=== PATIENT | female | born 1970 | race Caucasian/White ===

== ENCOUNTER 2025-07-11 13:46 | Emergency (ER) | payer OTHER, BC, SELFPAY ==
[2025-07-11 13:54] VITALS: BP 163/95
--- NOTE | 2025-07-11 15:24 | ED.SKININJ ---
HPI-Injury
General
Chief Complaint: Eye Problems
Source: patient
Exam Limitations: none
Time Seen by Provider: 07/11/25 14:52
Nursing documentation reviewed up to this point in time: agreed with
History of Present Illness-Injury
Initial Injury comments:
55 yo female with hx GERD, anxiety/depression presents for injury to left eye. 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 Went to where they go for worker's comp,
sent here for concern about orbital fracture and 'chunk out of my eye.' Vision in left eye is 'a little blurry.' Denies significant pain in the eyeball.
Past History
Past History
ED Past Medical History: Fibromyalgia, GERD and Psychiatric (anxiety/depression )
ED Past Surgical History: Appendectomy and Orthopedic
Social History
Tobacco: Non-smoker
Alcohol: None
Personal:
Living: with family
Employment: Employed
Review of Systems
Review of Systems
Allergies reviewed?: Yes
All Other Systems: ROS reviewed and negative except as documented in HPI and ROS
EENT: Reports other (Left eye injury)
ABD/GI: Denies nausea or vomiting
Skin: Reports no symptoms
Neurological: Denies dizzy, headache, weakness or numbness
Phy Exam
Physical Exam
Physical Exam:
GENERAL: No acute distress. A&Ox3.
CONSTITUTIONAL: Afebrile.
EYES: R eye clear, conjunctivae normal. L eye with moderate medial subconjunctival hemorrhage, EOMs intact mild orbital bony tenderness, no periorbital or eyelid swelling or discoloration. Pressure equal both eyes to palpation with mild tenderness L
eye
ENMT: moist mucus membranes, Pharynx nl
RESPIRATORY: Regular respirations, nonlabored, lungs clear.
CARDIOVASCULAR: Regular rate and rhythm, no murmurs, no rubs.
MUSCULOSKELETAL: Moves with ease. Well perfused.
SKIN: Warm, dry, pink
PSYCH: Normal mood and affect. Well kept, interactive and appropriate
NEUROLOGIC: Awake, alert and oriented. No focal neurological deficits
Eye Exam
Eye Exam: PERRL, EOMI, globe normal (Pressure left eye 8 mm Hg, Pressure R eye 7 mm Hg) and other (Pt wears contact in right eye only)
Right 20/: 30
Left 20/: 50
Both 20/: 30
Type of Exam: slit lamp and fluorescein (deep clean abrasion between 8 and 9 o'clock medial cornea and half way across iris area)
Course
Orders/Labs/Results
Orders:
Orders
07/11/25 14:52
Visual Acuity- Treatment ONCE
07/11/25 15:05
Fluorescein Sodium [Ful-Katerina] 1 mg .ROUTE .STK-MED ONE
Tetracaine HCl [Tetracaine 0.5% Ophthalmic Solution] 1 drop .ROUTE .STK-MED ONE
07/11/25 15:23
CT Orbits W/o Iv Contrast Urgent
Comment:
Reason For Exam: contusion left orbit, corneal abrasion
07/11/25 18:05
Ibuprofen [Motrin] 600 mg PO NOW STA
Vital Signs
Initial and Last Documented VS:
Initial Vital Signs
Temp Pulse Resp BP Pulse Ox
98.1 F 79 16 163/95 99
07/11/25 13:54 07/11/25 13:54 07/11/25 13:54 07/11/25 13:54 07/11/25 13:54
Last Documented Vital Signs
Temp Pulse Resp BP Pulse Ox
98.1 F 77 16 127/72 98
07/11/25 13:54 07/11/25 18:02 07/11/25 18:02 07/11/25 18:02 07/11/25 18:02
MDM/Problems Addressed
Differential Diagnosis Includes:
Corneal abrasion, punctured globe, orbital fracture
MDM/Problems Addressed:
55 yo female with hx GERD, anxiety/depression presents for injury to left eye. 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 Went to where they go for worker's comp,
sent here for concern about orbital fracture and 'chunk out of my eye.' Vision in left eye is 'a little blurry.' Denies significant pain in the eyeball.
NAD, pleasant
Orbital CT scan radiology report read: No fracture
Final diagnosis: Corneal abrasion, subconjunctival hemorrhage
6:00 p.m.
Plan: antibiotic eye drops, Tylenol as needed for pain, follow up with worker's comp ophthalmology at [facility]
Rx for Gentamicin eye drops sent to her pharmacy
Pt is comfortable, pleasant, ready for discharge
*Pulse Oximetry
SaO2: 99
Oxygen Mode of Delivery: Room air
Patient hypoxic: not evaluated
*Critical Care Note
Total Time (30-74mins, 75-104mins- exclusive of procedures): Not Applicable
ED Attending Note
-
Portions of this chart may have been created with voice recognition software.� Occasional wrong word or��sound alike� substitutions may have occurred due to the inherent limitations of voice recognition software.
Discharge Plan
Departure
Patient Disposition: Home (Routine Discharge)
Date of Disposition: 07/11/25
Time of Disposition: 18:09
Patient with high blood pressure during this ER visit?: No
Condition: Good
Discharge Problem:
Abrasion of left cornea, Traumatic subconjunctival hemorrhage of left eye
Instructions: Corneal Abrasion (DC), How to Use Eye Drops, Subconjunctival Hemorrhage
Prescriptions:
New
gentamicin 0.3 % drops
2 drp ophthalmic (eye) Q4H Qty: 5 0RF
No Action
cyclobenzaprine 10 MG tablet
10 mg PO DAILY PRN (Reason: fibromyalagia flare)
lorazepam 1 MG tablet
0.5 - 1 mg PO Q4HPRN PRN (Reason: anxiety)
sertraline 50 MG tablet
50 mg PO DAILY
lamotrigine 100 MG tablet
100 mg PO DAILY
loratadine 10 MG tablet
10 mg PO PRN PRN (Reason: allergies)
ondansetron 4 MG tablet,disintegrating
4 mg PO TIDPRN PRN (Reason: nausea) Qty: 9 0RF
Referrals:
[facility] [Other] - Follow up in 2-3 days
Ozzie Mathew MD [Family Provider, Family Practice]
Activity Restrictions/Additional Instructions:
As we discussed, I sent a prescription for gentamicin antibiotic drops to your pharmacy.
May take Tylenol ibuprofen as needed for pain.
Cool compress to the eye 20 minutes off-and-on today and tomorrow is much as you can may help soothe the area and minimize swelling
Call your Worker's Comp. eye doctor first thing Monday morning and make appointment for same-day for follow-up
Return here over the weekend for increasing pain in the eye, loss of vision, fever, feeling worse in any way.
Interventions
Interventions:
*Risk Screen - Suicide Last Done: 07/11/25 13:54
*General Assessment Last Done: 07/11/25 14:49
*Neglect/Abuse Screening Last Done: 07/11/25 13:54
*ED COVID-19 Vaccine History Last Done: 07/11/25 14:49
*ED Influenza Vaccine History Last Done: 07/11/25 14:49
*Nursing Disposition Last Done: 07/11/25 18:38
Discharge Date and Time
Discharge Date/Time: 07/11/25 18:38
Print Language: SYRIAN
[2025-07-11 18:02] VITALS: BP 127/72
[2025-07-11] MEDS: MOTRIN 600 MG PO (18:26)
== END 2025-07-11 18:38 | disposition home or self-care (01) ==
LOC: EMR 13:46
PROVIDERS: EMERGENCY PHYSICIAN Emergency Medicine; FAMILY PHYSICIAN Family Medicine
DX: S05.02XA Injury of conjunctiva and corneal abrasion without foreign body, left eye, initial encounter (principal); H11.32 Conjunctival hemorrhage, left eye; W22.8XXA Striking against or struck by other objects, initial encounter; Y92.89 Other specified places as the place of occurrence of the external cause; Y99.0 Civilian activity done for income or pay
CPT/HCPCS: 99284; 70480